=== PATIENT | female | born 1970 | race Caucasian/White ===

== ENCOUNTER 2018-04-14 05:58 | Emergency (ER) | payer MEDICAID ==
[~2018-04-14] VITALS: Ht 165.1 cm; Wt 66.4 kg
[2018-04-14 08:49] VITALS: BP 112/63
== END 2018-04-14 08:52 | disposition home or self-care (01) ==
LOC: ER 06:00
DX: F41.9 Anxiety disorder, unspecified (principal); Z88.0 Allergy status to penicillin
CPT/HCPCS: 99284

== ENCOUNTER 2020-06-10 19:11 | Emergency (ER) | payer MEDICAID ==
[~2020-06-10] VITALS: Ht 165.1 cm; Wt 63.6 kg
[2020-06-10 19:13] VITALS: BP 159/86
[2020-06-10] MEDS ORDERED: ketorolac tromethamine 15mg/ml inj. IM ONE (21:30)
== END 2020-06-10 21:51 | disposition home or self-care (01) ==
LOC: ER 19:11
DX: M20.092 Other deformity of left finger(s) (principal); Z88.0 Allergy status to penicillin
CPT/HCPCS: 96372; 99283; J1885

== ENCOUNTER 2022-11-12 07:01 | Emergency (ER) | payer MEDICAID ==
[~2022-11-12] VITALS: Ht 165.1 cm; Wt 72.7 kg
[2022-11-12] MEDS ORDERED: normal saline 1000ml 1,000 ML IV ONE (09:05)
[2022-11-12] MEDS ORDERED: ondansetron/PF 4mg/2ml inj IV ONE (09:05)
[2022-11-12] MEDS ORDERED: LORazepam 2 mg/ml vial IV ONE (09:05)
[2022-11-12] MEDS ORDERED: meclizine 12.5mg tablet PO ONE (09:05)
[2022-11-12 10:02] LABS: COLOR,URINE YELLOW (Yellow); GLUCOSE, URINE NEGATIVE (Neg); KETONES,URINE NEGATIVE (Neg); LEUKOCYTE ESTERASE ,URINE TRACE (Neg); NITRITES, URINE NEGATIVE (Neg); OCCULT BLOOD,URINE TRACE-INTACT (Neg); PROTEIN,URINE TRACE mg/dl (Neg)
[2022-11-12 10:03] LABS: CLARITY,URINE SLIGHTLY CLOUDY (Clear); UA COLLECTION TYPE CLN CATCH MIDSTREAM
[2022-11-12 10:09] LABS: MUCUS STRANDS MANY /LPF (Neg); SQUAMOUS EPITHELIAL CELL,UR MODERATE /LPF (FEW)
[2022-11-12 10:11] LABS: BACTERIA,URINE FEW /HPF (Neg); RBC,URINE 0-2 /HPF (0-2)
[2022-11-12 10:11] LABS: EOSINOPHILS # (AUTO) 0.2 X10'3 (0-0.9); HEMATOCRIT 28.7 % (35.0-45.0); HEMOGLOBIN 9.1 g/dl (12.0-16.0); MEAN CORPUSCULAR HEMOGLOBIN 24.6 PG (27.0-31.0); MEAN CORPUSCULAR VOLUME 77.6 FL (78-98); MEAN PLATELET VOLUME 8.8 FL (7.4-10.4); NEUTROPHILS # (AUTO) 5.4 X10'3 (1.8-7.7)
[2022-11-12 10:12] LABS: BASOPHILS % (AUTO) 0.4 % (0-1); EOSINOPHILS % (AUTO) 2.2 % (0-6); LYMPHOCYTES # (AUTO) 1.4 X10'3 (1.1-4.8); LYMPHOCYTES % (AUTO) 18.5 % (21-51); MEAN CORPUSCULAR HGB CONC 31.7 g/dL (33.0-36.5); MONOCYTES # (AUTO) 0.6 X10'3 (0-0.9); MONOCYTES % (AUTO) 7.7 % (2-12); NEUTROPHILS % (AUTO) 71.2 % (42-75); PLATELET COUNT 288 X10'3 (140-440); RED BLOOD COUNT 3.69 X10'6 (4.20-5.60); RED CELL DISTRIBUTION WIDTH 17.3 % (11.5-14.5); WHITE BLOOD COUNT 7.6 X10'3 (4.5-11.0)
[2022-11-12 10:16] LABS: ALANINE AMINOTRANSFERASE 23 U/L (12-78); ALBUMIN 3.1 G/DL (3.4-5.0); ALBUMIN/GLOBULIN RATIO 0.9 (1.1-1.5); ALKALINE PHOSPHATASE 77 IU/L (46-116); ANION GAP 7 (8-16); ASPARTATE AMINO TRANSFERASE 20 U/L (10-37); BILIRUBIN,TOTAL 0.2 MG/DL (0.1-1.0); BLOOD UREA NITROGEN 14 MG/DL (7-18); BUN/CREATININE RATIO 14.3 (10.0-20.0); CHLORIDE 109 MMOL/L (99-107); CREATININE 0.98 MG/DL (0.40-0.90); GLUCOSE 92 MG/DL (70-104); SODIUM 143 MMOL/L (135-145); TOTAL CARBON DIOXIDE 26.9 MMOL/L (24-32); TOTAL PROTEIN 6.5 G/DL (6.4-8.2); eGFR 59 ML/MIN
--- NOTE | 2022-11-12 10:25 | NUR ---
PT AMBULATORY TO RESTROOM AND BACK TO BED
[2022-11-12] MEDS ORDERED: potassium Cl 20 mEq SR tablet PO STA (11:31)
[2022-11-12 11:34] VITALS: BP 134/78
[2022-11-12] MEDS ORDERED: MECL-159 PO (11:39)
[2022-11-12] MEDS ORDERED: CEPH-585 PO (11:39)
[2022-11-12] MEDS ORDERED: potassium Cl 20 mEq SR tablet PO ONE (11:45)
--- NOTE | 2022-11-12 12:54 | NUR ---
Pt no longer in lobby, although a cab has been called for her. Called [employer] to let them know. They will check when it is her turn.
== END 2022-11-12 12:03 | disposition home or self-care (01) ==
LOC: ER 07:03
DX: R42 Dizziness and giddiness (principal)
CPT/HCPCS: 36415; 71045; 80053; 81001; 82948; 84484; 85025; 87088; 93005; 96361; 96374; 96375; 99285; J2060; J2405; J7030; J8597

== ENCOUNTER 2022-11-12 13:16 | Emergency (ER) | payer MEDICAID ==
[~2022-11-12] VITALS: Ht 165.1 cm; Wt 72.7 kg
[~2022-11-12 13:16] MED LIST: CEPH-585 PO; MECL-159 PO
[2022-11-12 14:04] VITALS: BP 150/78
== END 2022-11-12 15:50 | disposition home or self-care (01) ==
LOC: ER 13:17
DX: R53.1 Weakness (principal); Z00.8 Encounter for other general examination; Z88.0 Allergy status to penicillin; Z79.1 Long term (current) use of non-steroidal anti-inflammatories (NSAID)
CPT/HCPCS: 99281